=== PATIENT | male | born 1955 | race Caucasian/White ===

== ENCOUNTER 2025-07-04 08:48 | Outpatient (CLI) | payer MEDICARE, OTHER ==
[2025-07-04 10:33] LABS: Estimated GFR - POC 65.0
== END 2025-07-04 08:49 | disposition home or self-care (01) ==
LOC: CSHCT 08:48
PROVIDERS: ATTEND Urology
DX: C61 Malignant neoplasm of prostate (principal); R97.20 Elevated prostate specific antigen [PSA]; N28.9 Disorder of kidney and ureter, unspecified; K76.9 Liver disease, unspecified
CPT/HCPCS: 74170; 82565